=== PATIENT | male | born 1950 | race Two or more races ===

== ENCOUNTER 2018-05-27 01:04 | Inpatient (IN) | payer MEDICARE, OTHER ==
[~2018-05-27] VITALS: Ht 172.7 cm; Wt 72.1 kg
[2018-05-27 01:15] VITALS: BP 165/83
[2018-05-27] MEDS ORDERED: ZOLPIDEM TARTRATE 5 MG TABLET PO PRN (01:30)
[2018-05-27] MEDS ORDERED: MAG HYDROX/AL HYDROX/SIMETH 30 ML UDC PO PRN (01:30)
[2018-05-27] MEDS ORDERED: MAGNESIUM HYDROXIDE 30 ML UDC PO PRN (01:30)
[2018-05-27] MEDS ORDERED: ACETAMINOPHEN 325 MG TABLET PO PRN (01:30)
[2018-05-27] MEDS ORDERED: RISP1TAB27 PO (02:12)
[2018-05-27] MEDS ORDERED: DOCU-141 PO (02:12)
[2018-05-27] MEDS ORDERED: PANT40TA2 PO (02:12)
[2018-05-27] MEDS ORDERED: FERR325T23 PO (02:12)
[2018-05-27] MEDS ORDERED: AMLO5TAB4 PO (02:12)
[2018-05-27] MEDS ORDERED: LOSA100T3 PO (02:12)
[2018-05-27] MEDS ORDERED: TAMS-12 PO (02:12)
--- NOTE | 2018-05-27 04:26 | NUR ---
ADMITTED A 67 YEAR OLD ON 5150 HOLD FOR DTS, CAME TO THE UNIT AROUND 0115, BROUGHT IN BY PARAMEDICS. PATIENT WAS GIVEN ORIENTATION ON ADMISSION. PATIENT OVERDOSED ON PRESCRIBED MEDICATIONS. DENIES SI/HI AT THIS TIME. PATIENT AWAKE, ALERT, ORIENTED 3, NO APPARENT DISTRESS NOTED. SHOWS NO S/S OF ANY PAIN. PATIENT IS A/O X3, CALM, COOPERATIVE, APPROPRIATE, THOUGHT PROCESS INTACT, WELL GROOMED. DENIES ANY PAIN. AMBULATORY, SKIN WARM DRY AND INTACT. DISCOLORATION NOTED BOTH ARMS, PHOTO TAKEN, MRSA SCREEN DONE. BELONGINGS WERE INVENTORIED AND CHECKED FOR CONTRABAND. BED LOCKED AND PLACED ON LOWEST POSITION. WILL CONTINUE TO MONITOR Q 15 MINS. TO MAINTAIN SAFETY.
--- NOTE | 2018-05-27 06:58 | NUR ---
PAGED AND SOKE WITH ERIKA GAINES, RE: MED RECON - DONE MRSA SCREEN DONE. ROOM MATE SHON WATSON NOTIFIED ABOUT ADMISSION PER PATIENT'S ADMISSION TO GPS.
[2018-05-27 08:00] VITALS: BP 138/90
[2018-05-27] MEDS: AMLODIPINE BESYLATE 5 MG TABLET PO SCH (09:31)
[2018-05-27] MEDS: LOSARTAN POTASSIUM 50 MG TABLET PO SCH (09:31)
[2018-05-27] MEDS: PANTOPRAZOLE 40 MG TABLET.DR PO SCH ×2 (09:32→17:10)
[2018-05-27] MEDS: FERROUS SULFATE (325 MG) 325 MG/TAB TABLET PO SCH (09:32)
[2018-05-27] MEDS: LORAZEPAM 0.5 MG TABLET PO PRN ×2 (09:35→17:10)
--- NOTE | 2018-05-27 09:35 | NUR ---
RN NOTES ADMINISTERED ATIVAN 1 MG PO PRN FOR ANXIETY PER PATIENT REQUEST. V/S TAKEN BP 138/90, P-21, CONTINUED MONITORING.
[2018-05-27 10:43] LABS: CALCIUM, SERUM 8.4 mg/dL (8.5-10.1); CREATININE 0.8 mg/dL (0.6-1.3); POTASSIUM 3.9 mmol/L (3.5-5.1)
[2018-05-27 10:49] LABS: BASOPHILS % (AUTO) 0.5 % (0.0-2.0); EOSINOPHILS % (AUTO) 0.7 % (0.0-6.0); HEMATOCRIT 39 % (39-51); HEMOGLOBIN 13.3 g/dL (13.5-17.5); LYMPHOCYTES # (AUTO) 0.8 /CMM (0.8-4.8); MEAN CORPUSCULAR HGB CONC 34 g/dl (31.0-36.0); MEAN CORPUSCULAR VOLUME 90 fL (80-96); MONOCYTES % (AUTO) 11.9 % (2.0-12.0); NEUTROPHILS # (AUTO) 6.7 /CMM (1.8-8.9); NEUTROPHILS % (AUTO) 77.9 % (43.0-81.0); PLATELET COUNT (AUTO) 331 /CMM (150-450); RED BLOOD CELL COUNT(AUTO) 4.34 MIL/uL (4.5-6.0); WHITE BLOOD COUNT (AUTO) 8.6 K/uL (4.3-11.0)
--- NOTE | 2018-05-27 11:14 | NUR ---
CALLED DR. LOMAX AND DR. RANDOLPH FOR THE CONSULT AND LEFT A MESSAGE.
[2018-05-27] MEDS: risperiDONE 1 MG TABLET PO SCH (13:06)
[2018-05-27] MEDS: DIVALPROEX SODIUM 125 MG TABLET.DR PO SCH ×2 (13:07→21:03)
[2018-05-27] MEDS: BENZTROPINE MESYLATE (1 MG) 1 MG TABLET PO SCH ×2 (13:07→17:10)
[2018-05-27 16:00] VITALS: BP 160/99
[2018-05-27] MEDS: TAMSULOSIN 0.4 MG CAP.SR.24H PO SCH (17:14)
[2018-05-27] MEDS: FIXODENT 1 EA TUBE MM PRN (18:34)
[2018-05-27 20:00] VITALS: BP 141/81
[2018-05-27] MEDS: chlorproMAZINE HCL 25 MG TABLET PO SCH (21:03)
[2018-05-27] MEDS: diphenhydrAMINE HCL 50 MG CAPSULE PO SCH (21:03)
[2018-05-28 08:00] VITALS: BP 145/92
[2018-05-28 08:14] LABS: BASOPHILS # (AUTO) 0.1 /CMM (0.0-0.2); BASOPHILS % (AUTO) 0.8 % (0.0-2.0); EOSINOPHILS % (AUTO) 1.9 % (0.0-6.0); HEMATOCRIT 41 % (39-51); HEMOGLOBIN 13.7 g/dL (13.5-17.5); LYMPHOCYTES # (AUTO) 1.2 /CMM (0.8-4.8); LYMPHOCYTES % (AUTO) 15.1 % (20.0-44.0); MEAN CORPUSCULAR HGB CONC 33 g/dl (31.0-36.0); MEAN CORPUSCULAR VOLUME 91 fL (80-96); MONOCYTES % (AUTO) 13.4 % (2.0-12.0); NEUTROPHILS # (AUTO) 5.3 /CMM (1.8-8.9); NEUTROPHILS % (AUTO) 68.8 % (43.0-81.0); PLATELET COUNT (AUTO) 321 /CMM (150-450); RED BLOOD CELL COUNT(AUTO) 4.54 MIL/uL (4.5-6.0); WHITE BLOOD COUNT (AUTO) 7.7 K/uL (4.3-11.0)
[2018-05-28 08:30] LABS: CHOLESTEROL 139 mg/dL (<200); HDL CHOLESTEROL 51 mg/dL (40-60); LDL 75 mg/dL (0-99); TRIGLYCERIDES 76 mg/dL (30-150)
[2018-05-28 08:31] LABS: ALBUMIN 3.3 g/dL (3.4-5.0); BILIRUBIN,TOTAL 0.3 mg/dL (0.2-1.0); CALCIUM, SERUM 8.7 mg/dL (8.5-10.1); CREATININE 0.8 mg/dL (0.6-1.3); POTASSIUM 4.1 mmol/L (3.5-5.1); TOTAL PROTEIN, SERUM 6.5 g/dL (6.4-8.2)
[2018-05-28] MEDS: LORAZEPAM 0.5 MG TABLET PO PRN ×2 (09:22→17:34)
--- NOTE | 2018-05-28 09:22 | NUR ---
GPS/RN-NOTES PATIENT REQUESTING FOR ATIVAN FOR ANXIETY. ATIVAN 1MG P.O GIVEN PRN ORDER. WILL CONT. MONITORING FOR SAFETY AND BEHAVIOR.
[2018-05-28] MEDS: FERROUS SULFATE (325 MG) 325 MG/TAB TABLET PO SCH (09:53)
[2018-05-28] MEDS: DIVALPROEX SODIUM 125 MG TABLET.DR PO SCH ×2 (09:53→20:19)
[2018-05-28] MEDS: PANTOPRAZOLE 40 MG TABLET.DR PO SCH ×2 (09:56→16:20)
[2018-05-28] MEDS: AMLODIPINE BESYLATE 5 MG TABLET PO SCH (09:56)
[2018-05-28] MEDS: BENZTROPINE MESYLATE (1 MG) 1 MG TABLET PO SCH ×2 (09:56→16:20)
[2018-05-28] MEDS: LOSARTAN POTASSIUM 50 MG TABLET PO SCH (09:57)
[2018-05-28] MEDS: risperiDONE 1 MG TABLET PO SCH ×2 (09:59→16:20)
--- NOTE | 2018-05-28 10:25 | NUR ---
GPS/RN-NOTES PATIENT IN THE ROOM LAYING IN BED ,NO ACUTE DISTRESS NOTED.
[2018-05-28] MEDS: FIXODENT 1 EA TUBE MM PRN (15:24)
[2018-05-28 16:00] VITALS: BP 158/87
[2018-05-28] MEDS: DOCUSATE SODIUM 100 MG CAPSULE PO PRN (16:20)
[2018-05-28] MEDS: TAMSULOSIN 0.4 MG CAP.SR.24H PO SCH (17:16)
--- NOTE | 2018-05-28 17:36 | NUR ---
GPS/RN-NOTES PATIENT STATED" I NEED MY ATIVAN FOR ANXIETY". ATIVAN 1MG P.O GIVEN PRN ORDER. WILL CONT. MONITORING FOR SAFETY AND BEHAVIOR.
[2018-05-28 20:00] VITALS: BP 153/89
[2018-05-28] MEDS: diphenhydrAMINE HCL 50 MG CAPSULE PO SCH (21:06)
[2018-05-28] MEDS: chlorproMAZINE HCL 25 MG TABLET PO SCH (21:07)
[2018-05-29] MEDS: DIVALPROEX SODIUM 125 MG TABLET.DR PO SCH ×2 (08:15→21:11)
[2018-05-29] MEDS: LORAZEPAM 0.5 MG TABLET PO PRN ×2 (08:15→16:19)
--- NOTE | 2018-05-29 08:15 | NUR ---
GPS/RN-NOTES PATIENT REQUESTING ATIVAN FOR ANXIETY. ATIVAN 1MG P.O GIVEN PRN ORDER. WILL CONT. MONITORING FOR SAFETY AND BEHAVIOR.
[2018-05-29] MEDS: LOSARTAN POTASSIUM 50 MG TABLET PO SCH (08:16)
[2018-05-29] MEDS: PANTOPRAZOLE 40 MG TABLET.DR PO SCH ×2 (08:16→16:20)
[2018-05-29] MEDS: BENZTROPINE MESYLATE (1 MG) 1 MG TABLET PO SCH ×2 (08:16→16:20)
[2018-05-29] MEDS: risperiDONE 1 MG TABLET PO SCH ×2 (08:16→16:19)
[2018-05-29] MEDS: AMLODIPINE BESYLATE 5 MG TABLET PO SCH (08:17)
[2018-05-29 08:20] VITALS: BP 144/87
[2018-05-29] MEDS: FERROUS SULFATE (325 MG) 325 MG/TAB TABLET PO SCH (08:36)
--- NOTE | 2018-05-29 10:54 | NUR ---
ANSON contacted pts sister Renae [phone] to discuss discharge planning and for collateral information. Renae stated pt was hospitalized 3.5 weeks ago and had received a Risperdal shot by Dr. Morris Saavedra at [facility]. Renae stated that she would be available to pick pt up when stable for discharge and transport home.
--- NOTE | 2018-05-29 11:00 | NUR ---
ANSON contacted [facility] Address: [address], [place] [address] to confirm pt had received a Risperdal IM. Office was closed due to the Holiday. ANSON will follow-up tomorrow 05/30/18.
--- NOTE | 2018-05-29 11:25 | NUR ---
INITIAL DISCHARGE PLAN: Patient wishes to return home to [address] [place] [address] [address] [place] [address] . Pts sister Renae [phone] will transport pt home once stable for discharge. SW will help form a safe and proper discharge in collaboration with pt and MD.
[2018-05-29 16:00] VITALS: BP 152/85
[2018-05-29] MEDS: TAMSULOSIN 0.4 MG CAP.SR.24H PO SCH (17:44)
[2018-05-29 20:00] VITALS: BP 157/81
[2018-05-29] MEDS: diphenhydrAMINE HCL 50 MG CAPSULE PO SCH (21:11)
[2018-05-29] MEDS: chlorproMAZINE HCL 25 MG TABLET PO SCH (21:11)
[2018-05-30 08:00] VITALS: BP 156/95
[2018-05-30] MEDS: LOSARTAN POTASSIUM 50 MG TABLET PO SCH (08:32)
[2018-05-30] MEDS: BENZTROPINE MESYLATE (1 MG) 1 MG TABLET PO SCH ×2 (08:32→17:20)
[2018-05-30] MEDS: DOCUSATE SODIUM 100 MG CAPSULE PO PRN ×2 (08:32→17:20)
[2018-05-30] MEDS: DIVALPROEX SODIUM 125 MG TABLET.DR PO SCH ×2 (08:32→21:11)
[2018-05-30] MEDS: risperiDONE 1 MG TABLET PO SCH ×2 (08:33→17:20)
[2018-05-30] MEDS: FERROUS SULFATE (325 MG) 325 MG/TAB TABLET PO SCH (08:33)
[2018-05-30] MEDS: AMLODIPINE BESYLATE 5 MG TABLET PO SCH (08:33)
[2018-05-30] MEDS: PANTOPRAZOLE 40 MG TABLET.DR PO SCH ×2 (08:33→17:19)
[2018-05-30] MEDS: LORAZEPAM 0.5 MG TABLET PO PRN (09:36)
--- NOTE | 2018-05-30 10:00 | NUR ---
GPS CLERICAL CLERK: MD VISIT SEEN BY DR. HART WITH ORDERS. ORDERS ACKNOWLEDGED.
[2018-05-30] MEDS: FIXODENT 1 EA TUBE MM PRN (12:18)
--- NOTE | 2018-05-30 12:58 | NUR ---
ANSON received a phone call from CASEY Hopkins at [facility] Address: [address], [place] [address] who informed SW that pt was recently given 2 Invega Sustenna injections one on 05/17/18 234mg, and the other on 05/24/18 156mg. Kellie, stated pt is due for another injection on 06/21/18. She also stated pt is taking Congestin .5mg BID and Chlorpromazine 200mg at bedtime. ANSON informed her that she would notify psychiatrist for possible medication adjustments. ANSON will also fax [phone] discharge paperwork and contact her to schedule an aftercare appointment.
[2018-05-30 16:04] VITALS: BP 155/93
[2018-05-30] MEDS: TAMSULOSIN 0.4 MG CAP.SR.24H PO SCH (17:19)
[2018-05-30 20:00] VITALS: BP 142/80
[2018-05-30] MEDS: diphenhydrAMINE HCL 50 MG CAPSULE PO SCH (21:11)
[2018-05-30] MEDS: ATORVASTATIN 10 MG TABLET PO SCH (21:12)
[2018-05-30] MEDS: chlorproMAZINE HCL 25 MG TABLET PO SCH (21:12)
[2018-05-31 08:00] VITALS: BP 135/69
[2018-05-31] MEDS: DIVALPROEX SODIUM 125 MG TABLET.DR PO SCH ×2 (08:22→20:36)
[2018-05-31] MEDS: FERROUS SULFATE (325 MG) 325 MG/TAB TABLET PO SCH (08:22)
[2018-05-31] MEDS: BENZTROPINE MESYLATE (1 MG) 1 MG TABLET PO SCH ×2 (08:23→17:05)
[2018-05-31] MEDS: PANTOPRAZOLE 40 MG TABLET.DR PO SCH ×2 (08:23→17:05)
[2018-05-31] MEDS: risperiDONE 1 MG TABLET PO SCH ×2 (08:23→17:05)
[2018-05-31] MEDS: LOSARTAN POTASSIUM 50 MG TABLET PO SCH (08:24)
[2018-05-31] MEDS: AMLODIPINE BESYLATE 5 MG TABLET PO SCH (08:25)
[2018-05-31] MEDS: ASPIRIN 81 MG TAB.CHEW PO SCH (09:17)
[2018-05-31] MEDS: LORAZEPAM 0.5 MG TABLET PO PRN ×3 (13:26→20:36)
--- NOTE | 2018-05-31 13:26 | NUR ---
GPS/RN-NOTES PATIENT REQUESTING ATIVAN FOR ANXIETY. ATIVAN 1MG P.O GIVEN PRN ORDER. WILL CONT. MONITORING FOR SAFETY AND BEHAVIOR.
[2018-05-31 16:00] VITALS: BP 155/85
[2018-05-31] MEDS: TAMSULOSIN 0.4 MG CAP.SR.24H PO SCH (17:05)
[2018-05-31 20:22] VITALS: BP 162/94
[2018-05-31] MEDS: ATORVASTATIN 10 MG TABLET PO SCH (20:36)
[2018-05-31] MEDS: diphenhydrAMINE HCL 50 MG CAPSULE PO SCH (20:36)
[2018-05-31] MEDS: chlorproMAZINE HCL 25 MG TABLET PO SCH (20:37)
[2018-06-01 08:00] VITALS: BP 160/92
[2018-06-01] MEDS: BENZTROPINE MESYLATE (1 MG) 1 MG TABLET PO SCH ×2 (08:37→17:21)
[2018-06-01] MEDS: DIVALPROEX SODIUM 125 MG TABLET.DR PO SCH ×2 (08:37→20:49)
[2018-06-01] MEDS: FERROUS SULFATE (325 MG) 325 MG/TAB TABLET PO SCH (08:38)
[2018-06-01] MEDS: PANTOPRAZOLE 40 MG TABLET.DR PO SCH ×2 (08:38→17:21)
[2018-06-01] MEDS: LOSARTAN POTASSIUM 50 MG TABLET PO SCH (08:38)
[2018-06-01] MEDS: ASPIRIN 81 MG TAB.CHEW PO SCH (08:38)
[2018-06-01] MEDS: AMLODIPINE BESYLATE 5 MG TABLET PO SCH (08:39)
[2018-06-01] MEDS: risperiDONE 1 MG TABLET PO SCH ×2 (08:39→17:21)
[2018-06-01] MEDS: LORAZEPAM 0.5 MG TABLET PO PRN ×2 (10:21→19:45)
[2018-06-01 16:00] VITALS: BP 152/89
[2018-06-01] MEDS: TAMSULOSIN 0.4 MG CAP.SR.24H PO SCH (17:21)
--- NOTE | 2018-06-01 19:46 | NUR ---
FEELING ANXIOUS, ATIVAN 1 MG TAB PO GIVEN.
[2018-06-01] MEDS: ATORVASTATIN 10 MG TABLET PO SCH (21:04)
[2018-06-01] MEDS: diphenhydrAMINE HCL 50 MG CAPSULE PO SCH (21:04)
[2018-06-01] MEDS: chlorproMAZINE HCL 25 MG TABLET PO SCH (21:05)
[2018-06-02] MEDS: DOCUSATE SODIUM 100 MG CAPSULE PO PRN ×2 (09:42→16:14)
[2018-06-02] MEDS: FERROUS SULFATE (325 MG) 325 MG/TAB TABLET PO SCH (09:42)
[2018-06-02] MEDS: DIVALPROEX SODIUM 125 MG TABLET.DR PO SCH ×2 (09:42→21:43)
[2018-06-02] MEDS: ASPIRIN 81 MG TAB.CHEW PO SCH (09:42)
[2018-06-02] MEDS: PANTOPRAZOLE 40 MG TABLET.DR PO SCH ×2 (09:42→16:14)
[2018-06-02] MEDS: risperiDONE 1 MG TABLET PO SCH ×2 (09:42→16:14)
[2018-06-02] MEDS: AMLODIPINE BESYLATE 5 MG TABLET PO SCH (09:43)
[2018-06-02] MEDS: BENZTROPINE MESYLATE (1 MG) 1 MG TABLET PO SCH ×2 (09:43→16:14)
[2018-06-02] MEDS: LOSARTAN POTASSIUM 50 MG TABLET PO SCH (09:43)
[2018-06-02 09:47] VITALS: BP 155/95
[2018-06-02] MEDS: LORAZEPAM 0.5 MG TABLET PO PRN ×2 (10:58→16:14)
[2018-06-02 16:00] VITALS: BP 121/68
[2018-06-02] MEDS: TAMSULOSIN 0.4 MG CAP.SR.24H PO SCH (18:09)
[2018-06-02 20:00] VITALS: BP 144/85
[2018-06-02] MEDS: ATORVASTATIN 10 MG TABLET PO SCH (23:01)
[2018-06-02] MEDS: chlorproMAZINE HCL 25 MG TABLET PO SCH (23:01)
[2018-06-02] MEDS: diphenhydrAMINE HCL 50 MG CAPSULE PO SCH (23:02)
[2018-06-03] MEDS: LORAZEPAM 0.5 MG TABLET PO PRN ×4 (02:36→21:30)
[2018-06-03 08:00] VITALS: BP 100/68
[2018-06-03] MEDS: LOSARTAN POTASSIUM 50 MG TABLET PO SCH (08:16)
[2018-06-03] MEDS: AMLODIPINE BESYLATE 5 MG TABLET PO SCH (08:17)
[2018-06-03] MEDS: PANTOPRAZOLE 40 MG TABLET.DR PO SCH ×2 (08:19→17:20)
[2018-06-03] MEDS: ASPIRIN 81 MG TAB.CHEW PO SCH (08:19)
[2018-06-03] MEDS: BENZTROPINE MESYLATE (1 MG) 1 MG TABLET PO SCH ×2 (08:19→17:20)
[2018-06-03] MEDS: DIVALPROEX SODIUM 125 MG TABLET.DR PO SCH ×2 (08:19→20:47)
[2018-06-03] MEDS: risperiDONE 1 MG TABLET PO SCH ×2 (08:19→17:20)
[2018-06-03] MEDS: FERROUS SULFATE (325 MG) 325 MG/TAB TABLET PO SCH (08:19)
[2018-06-03 16:00] VITALS: BP 159/91
[2018-06-03] MEDS: TAMSULOSIN 0.4 MG CAP.SR.24H PO SCH (17:20)
[2018-06-03] MEDS: DOCUSATE SODIUM 100 MG CAPSULE PO PRN (17:20)
[2018-06-03 17:46] VITALS: BP 147/78
[2018-06-03 20:00] VITALS: BP 144/88
[2018-06-03] MEDS: ATORVASTATIN 10 MG TABLET PO SCH (20:46)
[2018-06-03] MEDS: diphenhydrAMINE HCL 50 MG CAPSULE PO SCH (20:46)
[2018-06-03] MEDS: chlorproMAZINE HCL 25 MG TABLET PO SCH (20:47)
[2018-06-04 08:00] VITALS: BP 115/77
[2018-06-04] MEDS: PANTOPRAZOLE 40 MG TABLET.DR PO SCH ×2 (08:56→17:12)
[2018-06-04] MEDS: DIVALPROEX SODIUM 125 MG TABLET.DR PO SCH ×2 (08:56→21:08)
[2018-06-04] MEDS: LORAZEPAM 0.5 MG TABLET PO PRN (08:56)
[2018-06-04] MEDS: DOCUSATE SODIUM 100 MG CAPSULE PO PRN ×2 (08:56→17:13)
[2018-06-04] MEDS: ASPIRIN 81 MG TAB.CHEW PO SCH (08:56)
[2018-06-04] MEDS: risperiDONE 1 MG TABLET PO SCH ×2 (08:57→17:12)
[2018-06-04] MEDS: AMLODIPINE BESYLATE 5 MG TABLET PO SCH (08:57)
[2018-06-04] MEDS: BENZTROPINE MESYLATE (1 MG) 1 MG TABLET PO SCH ×2 (08:57→17:12)
[2018-06-04] MEDS: LOSARTAN POTASSIUM 50 MG TABLET PO SCH (08:57)
[2018-06-04] MEDS: FERROUS SULFATE (325 MG) 325 MG/TAB TABLET PO SCH (08:58)
--- NOTE | 2018-06-04 15:31 | NUR ---
GPS/RN CALLED FOR PODIATRY CONSULT PER ALEA REQUEST Office Office
[2018-06-04 16:00] VITALS: BP 125/80
[2018-06-04] MEDS: LORAZEPAM 1 MG TABLET PO PRN (17:10)
[2018-06-04] MEDS: TAMSULOSIN 0.4 MG CAP.SR.24H PO SCH (17:14)
[2018-06-04 20:16] VITALS: BP 163/94
[2018-06-04] MEDS: diphenhydrAMINE HCL 50 MG CAPSULE PO SCH (21:08)
[2018-06-04] MEDS: ATORVASTATIN 10 MG TABLET PO SCH (21:08)
[2018-06-04] MEDS: chlorproMAZINE HCL 25 MG TABLET PO SCH (21:09)
[2018-06-04 22:00] VITALS: BP 135/64
[2018-06-05 08:00] VITALS: BP 134/65
[2018-06-05] MEDS: risperiDONE 1 MG TABLET PO SCH ×2 (09:00→16:48)
[2018-06-05] MEDS: FERROUS SULFATE (325 MG) 325 MG/TAB TABLET PO SCH (09:00)
[2018-06-05] MEDS: DIVALPROEX SODIUM 125 MG TABLET.DR PO SCH (09:00)
[2018-06-05] MEDS: LOSARTAN POTASSIUM 50 MG TABLET PO SCH (09:00)
[2018-06-05] MEDS: ASPIRIN 81 MG TAB.CHEW PO SCH (09:01)
[2018-06-05] MEDS: BENZTROPINE MESYLATE (1 MG) 1 MG TABLET PO SCH ×2 (09:01→16:49)
[2018-06-05] MEDS: PANTOPRAZOLE 40 MG TABLET.DR PO SCH ×2 (09:01→16:49)
[2018-06-05] MEDS: DOCUSATE SODIUM 100 MG CAPSULE PO PRN (09:01)
[2018-06-05] MEDS: AMLODIPINE BESYLATE 5 MG TABLET PO SCH (09:01)
--- NOTE | 2018-06-05 09:30 | NUR ---
RN-CO: PATIENT WAS SEEN AND EXAMINED BY DR HART WITH ORDER TO DISCONTINUE HOLD AND DISCHARGE PATIENT HOME TODAY. RIMMA COSBY BETTING AGENCY COUNTER CLERK WAS NOTIFIED AND MEDICALLY CLEARED FOR DISCHARGE. PATIENT REMAINS CALM AND COOPERATIVE TO CARE. DENIED SUICIDAL AND HOMICIDAL IDEATION. DENIED AUDITORY AND VISUAL HALLUCINATION. ALL DISCHARGE PAPERS WERE EXPLAINED INCLUDING HIS PRESCRIPTION. MADI (INVEGA 156 MG IM Q 4 WEEKS WHICH IS DUE 06/21/18). AND HIS FOLLOW UP APPOINTMENTS BELONGINGS WILL BE GIVEN BACK TO HIM..
--- NOTE | 2018-06-05 11:04 | NUR ---
ANSON contacted pts sister Renae [phone] and left voicemail to inform her pt was discharging on this present day.
--- NOTE | 2018-06-05 11:05 | NUR ---
ANSON faxed clinical information to CASEY Hopkins at [facility] Address: [address], [place] [address] .
[2018-06-05] MEDS: LORAZEPAM 1 MG TABLET PO PRN (12:57)
--- NOTE | 2018-06-05 13:36 | NUR ---
DISCHARGE NOTE: Pt will be discharged at 5:00pm via private vehicle home to [address] [place] [id number]. Pts sister Renae [phone] will pick pt up and transport home. Pts mood is euthymic with congruent affect. Pt denied suicidal/homicidal ideations and denied visual/auditory hallucinations. Pt will address substance abuse and continue psychiatric treatment with Psychiatrist: Dr. Clifford Saavedra [facility] Address: [address] [place] [address] [address] [facility], [place] [address] on Wednesday June 06, 2018 at 10:00am. Pt will also follow-up with Circus Agent: Dr. Lucas Hidalgo [address] [facility], [place] [address] [phone]. For smoking cessation, patient was referred to the [employer] and [employer] [id number]. Pt will also participate in a telephone meeting with [employer] [phone] on Wednesday June 06, 2018 at 8:00am. The multidisciplinary exitcare form was done, printed, signed, and given to the patient.
[2018-06-05 16:00] VITALS: BP 149/71
--- NOTE | 2018-06-05 17:40 | NUR ---
RN-CO: Patient was picked up by sister Renae [phone]. Prescriptions was discussed and she verbalized understanding. All belongings and valuables were given back. Patient was escorted by hospital staff in [facility].
--- NOTE | 2018-06-21 13:06 | NUR ---
15 DAY SUBSTANCE ABUSE FOLLOW UP: unable to follow up due to contact number no longer valid.
== END 2018-06-05 17:51 | disposition home or self-care (01) | DRG 885 ==
LOC: GPS 01:04
PROVIDERS: ADMIT Psychiatry & Neurology Psychiatry; ATTEND Psychiatry & Neurology Psychiatry
DX: F25.0 Schizoaffective disorder, bipolar type (principal); E87.1 Hypo-osmolality and hyponatremia; E44.1 Mild protein-calorie malnutrition; I10 Essential (primary) hypertension; D63.8 Anemia in other chronic diseases classified elsewhere; T50.901D Poisoning by unspecified drugs, medicaments and biological substances, accidental (unintentional), subsequent encounter; Z86.73 Personal history of transient ischemic attack (TIA), and cerebral infarction without residual deficits; Z81.8 Family history of other mental and behavioral disorders; F17.200 Nicotine dependence, unspecified, uncomplicated; Z87.19 Personal history of other diseases of the digestive system; F32.9 Major depressive disorder, single episode, unspecified; E86.1 Hypovolemia
CPT/HCPCS: 36415; 70450-TC; 80048-TC; 80053-TC; 80061-TC; 80164-TC; 85025-TC; 87081-TC; Q0161; Q0163